=== PATIENT | male | born 1985 | race Caucasian/White ===

== ENCOUNTER 2017-04-15 11:43 | Emergency (ER) | payer MEDICAID ==
[~2017-04-15] VITALS: Ht 177.8 cm; Wt 122.5 kg
[2017-04-15 13:59] VITALS: BP 144/102
[2017-04-15] MEDS ORDERED: KETOROLAC TROMETH 60MG/2ML VIAL IM ONE (14:15)
== END 2017-04-15 14:30 | disposition home or self-care (01) ==
LOC: ER 11:43
DX: S83.8X2A Sprain of other specified parts of left knee, initial encounter (principal); F17.210 Nicotine dependence, cigarettes, uncomplicated; F12.10 Cannabis abuse, uncomplicated; W19.XXXA Unspecified fall, initial encounter; Y93.39 Activity, other involving climbing, rappelling and jumping off; Y99.8 Other external cause status; Y92.89 Other specified places as the place of occurrence of the external cause
CPT/HCPCS: 73562; 96372; 99284; J1885

== ENCOUNTER 2017-09-08 16:12 | Emergency (ER) | payer SELFPAY ==
[~2017-09-08] VITALS: Ht 177.8 cm; Wt 118.8 kg
[2017-09-08 16:40] VITALS: BP 143/99
== END 2017-09-08 20:20 | disposition home or self-care (01) ==
LOC: ER 16:22
DX: J40 Bronchitis, not specified as acute or chronic (principal); F17.210 Nicotine dependence, cigarettes, uncomplicated; F12.10 Cannabis abuse, uncomplicated

== ENCOUNTER 2018-10-05 21:20 | Emergency (ER) | payer MEDICAID ==
[~2018-10-05] VITALS: Ht 177.8 cm; Wt 117.9 kg
[2018-10-05 21:42] VITALS: BP 151/85
[2018-10-05 22:06] LABS: Urine Bacteria NONE SEEN /hpf (None Seen); Urine Blood Negative /uL (Negative); Urine Mucus FEW (None Seen); Urine Specific Gravity 1.033 (1.001-1.035); Urine WBC 2 /hpf (0 - 3)
[2018-10-05 22:11] LABS: Basophils # (auto) 0.1 uL; Basophils % (auto) 0.5 % (0.0-2.0); Eosinophils # (auto) 0.1 uL; Eosinophils % (auto) 0.4 % (0.0-7.0); Lymphocytes # (auto) 1.7 uL; Lymphocytes % (auto) 9.3 % (10.0-50.0); Mean Corpuscular Hgb Conc. 34.1 g/dL (32.0-36.0); Mean Corpuscular Volume 93.8 fL (80.0-100.0); Monocytes # (auto) 1.6 uL; Monocytes % (auto) 8.5 % (0.0-12.0); Neutrophils % (auto) 81.3 % (37.0-80.0); Platelet Count (auto) 230 10^3/uL (140-450); Red Blood Cells 5.33 10^6/uL (4.5-5.90); Red Cell Distribution Width 13.4 % (11.8-14.3); White Blood Cell 18.5 10^3/uL (4.4-10.8)
[2018-10-05 22:19] LABS: Chloride 99 mmol/L (98-107); Potassium 3.9 mmol/L (3.5-5.1); Sodium 133 mmol/L (136-145)
[2018-10-05 22:23] LABS: Alanine Aminotransferase 64 U/L (16-61); Albumin 3.8 g/dL (3.4-5.0); Anion Gap 6 (5-15); Aspartate Aminotransferase 23 U/L (15-37); BUN/Creatinine Ratio 12.9; Blood Urea Nitrogen 15 mg/dL (7-18); Calcium 8.5 mg/dL (8.5-10.1); Carbon Dioxide 28 mmol/L (21-32); GFR African American > 60 mL/min; GFR Non-African American > 60 mL/min; Glucose 228 mg/dL (74-106)
[2018-10-05 22:25] LABS: Alkaline Phosphatase 78 U/L (45-117); Bilirubin, Total 2.1 mg/dL (0.2-1.0); Total Protein 8.2 g/dL (6.4-8.2)
== END 2018-10-06 01:00 | disposition left against medical advice (07) ==
LOC: ER 21:25
DX: R10.30 Lower abdominal pain, unspecified (principal); R19.7 Diarrhea, unspecified; M25.571 Pain in right ankle and joints of right foot; G89.29 Other chronic pain; Z53.21 Procedure and treatment not carried out due to patient leaving prior to being seen by health care provider
CPT/HCPCS: 36415; 80053; 81001; 85025

== ENCOUNTER 2019-07-02 17:57 | Emergency (ER) | payer MEDICAID ==
[~2019-07-02] VITALS: Ht 175.3 cm; Wt 103.4 kg
[2019-07-02 20:40] VITALS: BP 118/78
== END 2019-07-02 21:27 | disposition home or self-care (01) ==
LOC: ER 17:59
DX: S02.5XXA Fracture of tooth (traumatic), initial encounter for closed fracture (principal); F17.210 Nicotine dependence, cigarettes, uncomplicated; F12.90 Cannabis use, unspecified, uncomplicated; K04.7 Periapical abscess without sinus; K22.8 Other specified diseases of esophagus; Z88.5 Allergy status to narcotic agent; X58.XXXA Exposure to other specified factors, initial encounter; Y93.89 Activity, other specified; Y99.8 Other external cause status; Y92.89 Other specified places as the place of occurrence of the external cause
CPT/HCPCS: 93005

== ENCOUNTER 2020-11-03 14:25 | Emergency (ER) | payer MEDICAID ==
[~2020-11-03] VITALS: Ht 177.8 cm; Wt 63.5 kg
[2020-11-03 15:47] LABS: Hemoglobin 14.9 g/dL (13.5-17.5); Mean Corpuscular Hemoglobin 32.8 pg (28.0-32.0); Mean Corpuscular Hgb Conc. 33.9 g/dL (32.0-36.0); Mean Corpuscular Volume 96.6 fL (80.0-100.0); Platelet Count (auto) 122 10^3/uL (140-450); Red Blood Cells 4.56 10^6/uL (4.5-5.90); Red Cell Distribution Width 13.1 % (11.8-14.3); White Blood Cell 5.5 10^3/uL (4.4-10.8)
[2020-11-03 15:49] LABS: Basophils % (manual) 0 (0.0-2.0); Blast Cells 0; Metamyelocytes % 0; Myelocytes % 0; Promyelocytes % 0; Reactive Lymphocytes 0
[2020-11-03 16:08] LABS: Band Neutrophils % (manual) 2; Eosinophils % (manual) 1 (0-7); Lymphocytes % (manual) 17 (10.0-50.0); Monocytes % (manual) 18 (0-12)
[2020-11-03] MEDS ORDERED: MORPHINE SULFATE 4 MG/ML SYR/VIAL IV ONE (17:45)
[2020-11-03] MEDS ORDERED: LORazepam 2MG/ML-1ML VIAL IV ONE (17:45)
[2020-11-03] MEDS ORDERED: ONDANSETRON HCL 4 MG/2 ML VIAL IV ONE (17:45)
[2020-11-03 18:00] VITALS: BP 133/67
[2020-11-03 18:53] LABS: Urine Bacteria NONE SEEN /hpf (None Seen); Urine Blood Negative /uL (Negative); Urine Mucus FEW (None Seen); Urine Specific Gravity 1.032 (1.001-1.035); Urine WBC 2 /hpf (0 - 3)
[2020-11-03 19:03] LABS: Alcohol, Urine < 3.0 mg/dL (0-10); Amphetamine Screen, Urine NEGATIVE (NEGATIVE); Barbiturate Scree,Urine NEGATIVE (NEGATIVE); Benzodiazephine Screen, Urine NEGATIVE (NEGATIVE); Cannabinoid Screen, Urine POSITIVE (NEGATIVE); Cocaine Screen, Urine NEGATIVE (NEGATIVE); Opiate Scree,Urine POSITIVE (NEGATIVE); Phencyclidine Screen, Urine NEGATIVE (NEGATIVE)
[2020-11-03 19:16] LABS: Alanine Aminotransferase 203 U/L (16-61); Albumin 3.3 g/dL (3.4-5.0); Alkaline Phosphatase 72 U/L (45-117); Anion Gap 8 (5-15); Aspartate Aminotransferase 154 U/L (15-37); BUN/Creatinine Ratio 9.7; Bilirubin, Total 1.4 mg/dL (0.2-1.0); Blood Urea Nitrogen 7 mg/dL (7-18); Calcium 8.4 mg/dL (8.5-10.1); Carbon Dioxide 27 mmol/L (21-32); Chloride 103 mmol/L (98-107); GFR African American 163 mL/min; GFR Non-African American 134 mL/min; Glucose 117 mg/dL (74-106); Sodium 138 mmol/L (136-145); Total Protein 6.9 g/dL (6.4-8.2)
== END 2020-11-03 19:54 | disposition home or self-care (01) ==
LOC: EDBD 14:25 → ER 14:25
DX: R07.89 Other chest pain (principal); F17.210 Nicotine dependence, cigarettes, uncomplicated; Z88.6 Allergy status to analgesic agent
CPT/HCPCS: 36415; 71045; 80053; 80307; 81001; 83690; 84484; 85007; 85027; 93005; 96374; 96375; 99285; J2060; J2270; J2405

== ENCOUNTER 2020-11-28 11:24 | Emergency (ER) | payer MEDICAID ==
[~2020-11-28] VITALS: Ht 175.3 cm; Wt 99.8 kg
[2020-11-28] MEDS ORDERED: chlordiazePOXIDE HCL 5 MG CAP PO ONE (11:45)
[2020-11-28] MEDS ORDERED: SODIUM CHLORIDE 0.9% 1,000 ML IV ONE ×2 (11:45→14:30)
[2020-11-28] MEDS ORDERED: PANTOPRAZOLE 40 MG/10 ML VIAL INJ IV ONE (11:45)
[2020-11-28] MEDS ORDERED: THIAMINE 100mg/ml INJ (200mg/2ml VIAL) IV ONE (11:45)
[2020-11-28 11:58] LABS: Basophils # (auto) 0 10 ^3/uL (0-0.2); Basophils % (auto) 0.7 % (0.0-2.0); Eosinophils # (auto) 0.1 10 ^3/uL (0-0.8); Eosinophils % (auto) 1.8 % (0.0-7.0); Hematocrit 45.2 % (41.0-53.0); Hemoglobin 15.8 g/dL (13.5-17.5); Lymphocytes % (auto) 16.3 % (10.0-50.0); Mean Corpuscular Hemoglobin 33.5 pg (28.0-32.0); Mean Corpuscular Hgb Conc. 34.9 g/dL (32.0-36.0); Mean Corpuscular Volume 96.1 fL (80.0-100.0); Monocytes # (auto) 0.6 10 ^3/uL (0-1.3); Monocytes % (auto) 9.5 % (0.0-12.0); Neutrophils # (auto) 4.6 10 ^3/uL (1.6-8.6); Neutrophils % (auto) 71.7 % (37.0-80.0); Nucleated Red Blood Cells % 0.2 %; Red Blood Cells 4.71 10^6/uL (4.5-5.90); Red Cell Distribution Width 13.5 % (11.8-14.3); White Blood Cell 6.4 10^3/uL (4.4-10.8)
[2020-11-28 12:12] LABS: Albumin 3.7 g/dL (3.4-5.0); Calcium 8.8 mg/dL (8.5-10.1); Magnesium 1.5 mg/dL (1.6-2.6); Potassium 3.7 mmol/L (3.5-5.1)
[2020-11-28 12:16] LABS: BUN/Creatinine Ratio 11.7; Total Protein 7.4 g/dL (6.4-8.2)
[2020-11-28 14:15] LABS: Urine Bacteria NONE SEEN /hpf (None Seen); Urine Blood Negative /uL (Negative); Urine Hyaline Cast MOD /lpf (0 - 2); Urine Mucus MODERATE (None Seen); Urine Specific Gravity 1.037 (1.001-1.035); Urine WBC 2 /hpf (0 - 3)
[2020-11-28] MEDS ORDERED: ONDANSETRON HCL 4 MG/2 ML VIAL IV ONE (14:30)
[2020-11-28] MEDS ORDERED: MORPHINE SULFATE 4 MG/ML SYR/VIAL IV ONE (14:30)
[2020-11-28 14:36] LABS: Amphetamine Screen, Urine NEGATIVE (NEGATIVE); Barbiturate Scree,Urine NEGATIVE (NEGATIVE); Benzodiazephine Screen, Urine NEGATIVE (NEGATIVE); Cannabinoid Screen, Urine POSITIVE (NEGATIVE); Cocaine Screen, Urine NEGATIVE (NEGATIVE); Opiate Scree,Urine POSITIVE (NEGATIVE); Phencyclidine Screen, Urine NEGATIVE (NEGATIVE)
[2020-11-28 18:01] VITALS: BP 144/97
== END 2020-11-28 18:06 | disposition home or self-care (01) ==
LOC: EDBD 11:24 → ER 11:24
DX: F10.239 Alcohol dependence with withdrawal, unspecified (principal); F17.210 Nicotine dependence, cigarettes, uncomplicated; Z88.6 Allergy status to analgesic agent; Y90.8 Blood alcohol level of 240 mg/100 ml or more
CPT/HCPCS: 36415; 71045; 80053; 80307; 81001; 83735; 84484; 85025; 93005; 96361; 96374; 96375; 99285; C9113; J2270; J2405; J3411; J7030

== ENCOUNTER 2023-07-25 14:40 | Inpatient (IN) | payer MEDICAID ==
[~2023-07-25] VITALS: Ht 177.8 cm; Wt 99.4 kg
[2023-07-25] MEDS ORDERED: ONDANSETRON HCL 4 MG/2 ML VIAL IM ONE (15:00)
[2023-07-25 15:28] LABS: Basophils # (auto) 0 10 ^3/uL (0-0.2); Basophils % (auto) 0.5 % (0.0-2.0); Eosinophils # (auto) 0.1 10 ^3/uL (0-0.8); Eosinophils % (auto) 1.3 % (0.0-7.0); Hematocrit 39.2 % (41.0-53.0); Hemoglobin 13.4 g/dL (13.5-17.5); Lymphocytes # (auto) 2.1 10 ^3/uL (0.4-5.4); Lymphocytes % (auto) 22.4 % (10.0-50.0); Mean Corpuscular Hemoglobin 34.2 pg (28.0-32.0); Mean Corpuscular Hgb Conc. 34.2 g/dL (32.0-36.0); Mean Corpuscular Volume 99.9 fL (80.0-100.0); Monocytes # (auto) 0.8 10 ^3/uL (0-1.3); Monocytes % (auto) 8.9 % (0.0-12.0); Neutrophils # (auto) 6.4 10 ^3/uL (1.6-8.6); Neutrophils % (auto) 66.9 % (37.0-80.0); Red Blood Cells 3.92 10^6/uL (4.5-5.90); Red Cell Distribution Width 14.4 % (11.8-14.3); White Blood Cell 9.5 10^3/uL (4.4-10.8)
[2023-07-25 15:50] LABS: Alanine Aminotransferase 50 U/L (7-40); Alkaline Phosphatase 130 U/L (46-116); Calcium 8.3 mg/dL (8.7-10.4); Carbon Dioxide 25 mmol/L (20-30); Chloride 104 mmol/L (98-107)
[2023-07-25 15:51] LABS: Albumin 3.3 g/dL (3.2-4.8); Anion Gap 10 (5-15); Aspartate Aminotransferase 120 U/L (13-40); Blood Alcohol 44.4 mg/dL (<10); Glucose 105 mg/dL (74-106); Lipase 50 U/L (12-53); Magnesium 1.8 mg/dL (1.6-2.6); Potassium 3.6 mmol/L (3.5-5.1); Sodium 139 mmol/L (136-145)
[2023-07-25 15:57] LABS: Blood Urea Nitrogen < 5 mg/dL (9-23)
[2023-07-25 16:03] LABS: COVID19 ANTIGEN SOFIA FIA NEGATIVE (NEGATIVE); Rapid Influenza A Negative (Negative); Rapid Influenza B Negative (Negative)
[2023-07-25 18:52] LABS: Amphetamine Screen, Urine Neg (NEGATIVE); Barbiturate Scree,Urine Neg (NEGATIVE); Benzodiazephine Screen, Urine Neg (NEGATIVE); Cannabinoid Screen, Urine Pos (NEGATIVE); Cocaine Screen, Urine Neg (NEGATIVE); Opiate Scree,Urine Pos (NEGATIVE); Phencyclidine Screen, Urine Neg (NEGATIVE)
[2023-07-25 18:54] LABS: Urine Bacteria NONE SEEN /hpf (None Seen); Urine Blood Negative /uL (Negative); Urine Clarity HAZY (Clear); Urine Color Yellow (Yellow); Urine Hyaline Cast FEW /lpf (0 - 2); Urine Mucus MANY (None Seen); Urine Protein, UAD 2+ (Negative); Urine Specific Gravity 1.034 (1.001-1.035); Urine Urobilinogen >12.0 mg/dL (Negative); Urine WBC 5 /hpf (0 - 3); Urine pH 6.5 (5.0-8.0)
[2023-07-25] MEDS ORDERED: METOCLOPRAMIDE HCL 10 MG TAB PO ONE (19:15)
[2023-07-25] MEDS ORDERED: THIAMINE 100mg/ml INJ (200mg/2ml VIAL) IV ONE (19:15)
[2023-07-25] MEDS ORDERED: LACTULOSE 20Gm/30ML SOLN PO ONE (19:15)
[2023-07-25] MEDS ORDERED: ONDANSETRON HCL 4 MG/2 ML VIAL IV PRN (19:30)
[2023-07-25] MEDS ORDERED: LORazepam 2MG/ML-1ML VIAL IV PRN (19:30)
[2023-07-25] MEDS ORDERED: FUROSEMIDE 20 MG/2 ML VIAL IV ONE (19:30)
[2023-07-25] MEDS ORDERED: DOCUSATE SOD 100 MG CAP PO PRN (19:30)
[2023-07-25] MEDS ORDERED: NITROGLYCERIN 0.4 MG SL TAB SL PRN (19:30)
[2023-07-25] MEDS ORDERED: LORazepam 2MG/ML-1ML VIAL IV ONE (19:30)
[2023-07-25] MEDS ORDERED: MORPHINE SULFATE INJ 2 MG/ml SYRG IV PRN ×2 (19:30)
[2023-07-25] MEDS ORDERED: ACETAMINOPHEN 325 MG TAB PO PRN (19:30)
[2023-07-25] MEDS ORDERED: PANTOPRAZOLE 40 MG/10 ML VIAL INJ IV ONE (20:15)
[2023-07-25] MEDS: chlordiazePOXIDE HCL 25 MG CAP PO SCH (21:08)
[2023-07-25] MEDS: HYDROcodone-ACET 5/325MG TAB PO PRN (21:59)
[2023-07-25 22:00] VITALS: PULSE 98; RESP 19; O2SAT 95
[2023-07-26] MEDS: chlordiazePOXIDE HCL 25 MG CAP PO SCH ×4 (04:52→21:37)
[2023-07-26 06:45] LABS: Monocytes # (auto) 0.8 10 ^3/uL (0-1.3); Red Cell Distribution Width 14.1 % (11.8-14.3)
[2023-07-26 06:46] LABS: Alanine Aminotransferase 36 U/L (7-40); Albumin 2.7 g/dL (3.2-4.8); Alkaline Phosphatase 107 U/L (46-116); Anion Gap 4 (5-15); Aspartate Aminotransferase 86 U/L (13-40); BUN/Creatinine Ratio 8.8 (10.0-20.0); Bilirubin, Total 6.2 mg/dL (0.2-1.0); Blood Urea Nitrogen 5 mg/dL (9-23); Calcium 7.9 mg/dL (8.7-10.4); Carbon Dioxide 29 mmol/L (20-30); Chloride 106 mmol/L (98-107); Glucose 100 mg/dL (74-106); Potassium 3.7 mmol/L (3.5-5.1); Sodium 139 mmol/L (136-145)
[2023-07-26 06:47] LABS: Basophils # (auto) 0 10 ^3/uL (0-0.2); Basophils % (auto) 0.4 % (0.0-2.0); Eosinophils # (auto) 0.2 10 ^3/uL (0-0.8); Eosinophils % (auto) 1.9 % (0.0-7.0); Hematocrit 36.1 % (41.0-53.0); Hemoglobin 12.1 g/dL (13.5-17.5); Lymphocytes % (auto) 23.3 % (10.0-50.0); Mean Corpuscular Hemoglobin 33.8 pg (28.0-32.0); Mean Corpuscular Hgb Conc. 33.5 g/dL (32.0-36.0); Mean Corpuscular Volume 100.9 fL (80.0-100.0); Monocytes % (auto) 9.6 % (0.0-12.0); Neutrophils # (auto) 5.6 10 ^3/uL (1.6-8.6); Neutrophils % (auto) 64.8 % (37.0-80.0); Nucleated Red Blood Cells % 0.4 %; Red Blood Cells 3.58 10^6/uL (4.5-5.90); White Blood Cell 8.6 10^3/uL (4.4-10.8)
[2023-07-26] MEDS ORDERED: cefTRIAXone 1GM/50ML D5W 50 ML IV SCH (09:00)
[2023-07-26] MEDS ORDERED: SPIRONOLACTONE 25 MG TAB PO SCH (10:00)
[2023-07-26 10:41] LABS: Hepatitis B Surface Antigen Negative (Negative)
[2023-07-26] MEDS: PANTOPRAZOLE 40 MG/10 ML VIAL INJ IV SCH (10:59)
[2023-07-26] MEDS: FUROSEMIDE 20 MG/2 ML VIAL IV SCH (10:59)
[2023-07-26 11:01] LABS: Hepatitis A Ab IgM Negative
[2023-07-26 11:02] LABS: Hepatitis B Core IgM Negative; Hepatitis C Antibody Negative (Negative)
[2023-07-26] MEDS ORDERED: FOLIC ACID 1 MG, MULTIPLE VITAMIN 10 ML, MAGNESIUM SULF SDV 50% 8 MEQ, THIAMINE INJ 100... INJ SCH ×5 (12:00)
[2023-07-26 17:24] VITALS: PULSE 126; RESP 20; O2SAT 90
[2023-07-26 17:44] VITALS: BP 118/77; PULSE 124; RESP 20; TEMP 98.3; O2SAT 94
[2023-07-26 20:00] VITALS: PULSE 82; RESP 16; O2SAT 95
[2023-07-26] MEDS: HYDROcodone-ACET 5/325MG TAB PO PRN (20:17)
[2023-07-26 22:00] VITALS: BP 137/79; PULSE 82; RESP 16; TEMP 97.9; O2SAT 95
[2023-07-27] MEDS: HYDROcodone-ACET 5/325MG TAB PO PRN ×2 (04:11→21:48)
[2023-07-27 05:00] VITALS: BP 93/60; PULSE 101; RESP 18; TEMP 98.2; O2SAT 96
[2023-07-27 06:36] LABS: Basophils # (auto) 0 10 ^3/uL (0-0.2); Basophils % (auto) 0.6 % (0.0-2.0); Eosinophils # (auto) 0.3 10 ^3/uL (0-0.8); Eosinophils % (auto) 3.9 % (0.0-7.0); Hematocrit 35.7 % (41.0-53.0); Hemoglobin 11.9 g/dL (13.5-17.5); Lymphocytes % (auto) 29.1 % (10.0-50.0); Mean Corpuscular Hemoglobin 33.9 pg (28.0-32.0); Mean Corpuscular Hgb Conc. 33.4 g/dL (32.0-36.0); Mean Corpuscular Volume 101.4 fL (80.0-100.0); Monocytes # (auto) 0.7 10 ^3/uL (0-1.3); Monocytes % (auto) 10.3 % (0.0-12.0); Neutrophils # (auto) 3.8 10 ^3/uL (1.6-8.6); Neutrophils % (auto) 56.1 % (37.0-80.0); Nucleated Red Blood Cells % 0.3 %; Red Blood Cells 3.52 10^6/uL (4.5-5.90); Red Cell Distribution Width 14.2 % (11.8-14.3); White Blood Cell 6.8 10^3/uL (4.4-10.8)
[2023-07-27 07:06] LABS: Alanine Aminotransferase 34 U/L (7-40); Albumin 2.5 g/dL (3.2-4.8); Alkaline Phosphatase 90 U/L (46-116); Anion Gap 4 (5-15); BUN/Creatinine Ratio 16.4 (10.0-20.0); Blood Urea Nitrogen 10 mg/dL (9-23); Calcium 7.9 mg/dL (8.5-10.1); Carbon Dioxide 31 mmol/L (20-30); Chloride 108 mmol/L (98-107); Glucose 99 mg/dL (74-106); Potassium 3.6 mmol/L (3.5-5.1); Sodium 143 mmol/L (136-145)
[2023-07-27 07:07] LABS: Aspartate Aminotransferase 61 U/L (13-40); Bilirubin, Total 4.5 mg/dL (0.2-1.0); Total Protein 5.6 g/dL (5.7-8.2)
[2023-07-27 08:00] VITALS: BP 81/44; PULSE 77; RESP 20; TEMP 98.3; O2SAT 96
[2023-07-27] MEDS: SPIRONOLACTONE 25 MG TAB PO SCH (10:02)
[2023-07-27] MEDS: MULTIPLE VITAMIN TAB PO SCH (10:03)
[2023-07-27] MEDS: LACTULOSE 20Gm/30ML SOLN PO SCH ×2 (10:03→21:41)
[2023-07-27] MEDS: chlordiazePOXIDE HCL 25 MG CAP PO SCH ×2 (10:03→21:38)
[2023-07-27] MEDS: PANTOPRAZOLE 40 MG/10 ML VIAL INJ IV SCH (10:03)
[2023-07-27] MEDS: FUROSEMIDE 20 MG/2 ML VIAL IV SCH (10:04)
[2023-07-27 12:00] VITALS: BP 123/82; PULSE 97; RESP 18; TEMP 97.8; O2SAT 95
[2023-07-27] MEDS: THIAMINE HCL 100 MG TAB PO SCH (12:28)
[2023-07-27] MEDS: AMOXICILLIN/CLAVULAN 500 MG TAB PO SCH ×2 (15:28→21:41)
[2023-07-27 16:00] VITALS: BP 103/64; PULSE 100; RESP 19; TEMP 98.5; O2SAT 91
[2023-07-27 20:00] VITALS: PULSE 82; RESP 18; O2SAT 93
[2023-07-27 22:00] VITALS: BP 99/58; PULSE 82; RESP 18; TEMP 98.5; O2SAT 93
[2023-07-28] VITALS (7 sets, daily range): BP systolic 89–127; BP diastolic 48–74; PULSE 89–113; RESP 16–20; TEMP 98.2–98.3; O2SAT 92–94
[2023-07-28] MEDS: AMOXICILLIN/CLAVULAN 500 MG TAB PO SCH ×2 (06:23→14:00)
[2023-07-28] MEDS ORDERED: chlordiazePOXIDE HCL 25 MG CAP PO SCH (07:00)
[2023-07-28] MEDS ORDERED: ALBUMIN 5% 250 ML IV ONE (07:30)
[2023-07-28] MEDS: LACTULOSE 20Gm/30ML SOLN PO SCH (09:09)
[2023-07-28] MEDS: PANTOPRAZOLE 40 MG/10 ML VIAL INJ IV SCH (09:09)
[2023-07-28] MEDS: FUROSEMIDE 20 MG/2 ML VIAL IV SCH (09:10)
[2023-07-28] MEDS: THIAMINE HCL 100 MG TAB PO SCH (09:11)
[2023-07-28] MEDS: SPIRONOLACTONE 25 MG TAB PO SCH (09:11)
[2023-07-28] MEDS: MULTIPLE VITAMIN TAB PO SCH (09:11)
[2023-07-28 12:00] LABS: INR 1.86 (0.9-1.15); Partial Thromboplastin Time 34.3 SEC (24.5-34.5); Prothrombin Time 18.8 sec (9.3-11.8)
[2023-07-28] MEDS ORDERED: LACT10PA2 PO (15:54)
[2023-07-28] MEDS ORDERED: THIA100T10 PO (15:54)
[2023-07-28] MEDS ORDERED: AMOX500T86 PO (16:02)
[2023-07-28 17:09] LABS: Body Fluid Polymorphonuclear 6 % (0-25); Body Fluid Red Blood Cells 212.5 CUMM (0-2000); Body Fluid White Blood Cells 175 CUMM (0-200)
[2023-07-29 12:06] LABS: Protein, Body Fluid 1.7 g/dL (.)
== END 2023-07-28 18:08 | disposition home or self-care (01) | DRG 280 ==
LOC: ER 14:40 → TELE 19:49 → TELE-WESTW 07-26 17:37 → WEST WING 07-27 01:49
PROVIDERS: ADMIT Nurse Practitioner Family; ATTEND Nurse Practitioner Acute Care
PROC: 0W9G3ZZ Drainage of Peritoneal Cavity, Percutaneous Approach (ICD-10-PCS; principal; 2023-07-28)
DX: K70.31 Alcoholic cirrhosis of liver with ascites (principal); I95.9 Hypotension, unspecified; D69.6 Thrombocytopenia, unspecified; F10.139 Alcohol abuse with withdrawal, unspecified; K12.2 Cellulitis and abscess of mouth; K52.9 Noninfective gastroenteritis and colitis, unspecified; G89.4 Chronic pain syndrome; I86.4 Gastric varices; K05.6 Periodontal disease, unspecified; F17.210 Nicotine dependence, cigarettes, uncomplicated; Z20.822 Contact with and (suspected) exposure to COVID-19; F41.9 Anxiety disorder, unspecified; Y90.9 Presence of alcohol in blood, level not specified; Z59.7 Insufficient social insurance and welfare support
CPT/HCPCS: 36415; 71045; 74176; 76705; 76942; 80053; 80074; 80307; 80320; 81001; 82140; 82248; 83690; 83735; 83880; 83986; 84484; 85025; 85610; 85730; 87205; 87426; 87804; 89051; 93005; 96365; 96367; 96372; 96375; 96376; C9113; G0378; J0696; J2405